=== PATIENT | female | born 1970 | race Caucasian/White ===

== ENCOUNTER 2025-01-28 10:55 | Emergency (ER) | payer OTHER, SELFPAY ==
[2025-01-28] VITALS (33 sets, daily range): BP systolic 134–161; BP diastolic 73–95; PULSE 65–87; RESP 11–22; TEMP 36.8; O2SAT 83–100
--- NOTE | 2025-01-28 10:45 | RT.EKG_ITS ---
APPROVED REPORT Exam: Resting ECG Reason for Exam: dizziness Patient Location: E HR:71 bpm ECG Measurements Heart Rate 71 AXIS OR 179 P 72 QRSd 107 QRS -15 QT 406 T 43 QTc 441 Conclusion Sinus rhythm...normal P axis, V-rate 60- 99 Sinus Rhythm. No prior. WD
--- NOTE | 2025-01-28 11:44 | W.ED.GENAD ---
Discharge Plan Disposition Patient Disposition: Home Condition: Improving Discharge Details Clinical Impression: Nausea, Headache Primary Care Provider: None,None ED Provider: Mikaela Machado Home Meds and New Rx's Prescriptions: No Action estradiol 0.25 mg/0.25 gram (0.1 %) gel in packet 1 packet transdermal .Q7 days bupropion HCl [Wellbutrin SR] 150 mg tablet sustained-release 12 hr 150 mg PO DAILY Discharge Instructions Instructions: Headache, Adult ED, Nausea and Vomiting, Adult ED Additional Instructions: Push fluids and advance diet as tolerated. Follow up with your doctor. Symptoms may worsen and the testing in the emergency department does not rule out the early stages of a possible surgical condition. Return to ED for worsening pain, migration of pain to right lower abdomen, high fevers, or intractable vomiting. Discharge Data Discharge Physician: Mikaela Machado [facility] General Date/Time Provider Initiated Documentation: 01/28/25 10:58. HPI Narrative: 54-year-old female with history of gastroparesis, diverticulosis, Abhishek fundoplication presents for evaluation of nausea, abdominal pain, headache. Patient states that symptoms started on Wednesday. She has had ongoing nausea since that time. She was able to eat a very small amount yesterday. She states that she was going to the bathroom frequently but was not having any diarrhea. No increased urinary frequency, dysuria, gross hematuria. She initially had a frontal headache. Now she has pressure everywhere. She denies any cough or cold. No shortness of breath. She states that her symptoms are very similar to when she had COVID. Denies any known sick contacts. She did take some Zofran at home without any significant improvement of her nausea. She has had a cholecystectomy and had unilateral oophorectomy. Last colonoscopy showed diverticulosis. She has never had diverticulitis. Related Data Home Medications ?Medication ?Instructions ?Recorded ?Confirmed bupropion HCl 150 mg tablet,12 hr 150 mg PO DAILY 01/28/25 01/28/25 sustained-release (Wellbutrin SR) estradiol 0.25 mg/0.25 gram (0.1 1 packet transdermal .Q7 days 01/28/25 01/28/25 %) transdermal gel packet Allergies Allergy/AdvReac Type Severity Reaction Status Date / Time Sulfa (Sulfonamide Allergy Severe Hives Verified 01/28/25 11:13 Antibiotics) General Stated Complaint: Abd Prob SISI: 3 Review of Systems Narrative: Remainder of review of systems otherwise negative except for as noted in the HPI x 10. Exam Narrative Exam Narrative: General: non-toxic, no respiratory distress, comfortable HEENT: normocephalic, atraumatic, lids and lashes normal, PERRL, EOMI, anicteric sclera, no conjunctival injection, moist oral mucosa Neck: No meningeal signs Card: regular rate and rhythm, S1S2, no murmurs, rubs, or gallops Lungs: good air entry, clear to auscultation bilaterally. no wheezes, rales, rhonchi, or retractions Abd: soft, non-tender, non-distended, normal bowel sounds, no rebound or guarding, no peritoneal signs Musculoskeletal: full range of motion of arms and legs, no tenderness to palpation. no clubbing, cyanosis, or edema Neurologic: GSC 15, CN 2-12 intact bilaterally, speech normal, strength normal, sensation intact distally in all four extremities, gait normal, 2+ biceps tendon reflexes, normal finger to nose, normal rapid alternating movements, no pronator drift l Psych: alert and oriented Skin: no petechiae, no lesions, warm and dry Course Vital Signs Vital signs: Vital Signs Temperature 36.8 C 01/28/25 10:59 Pulse 73 01/28/25 10:59 Respiratory Rate 13 01/28/25 10:59 Blood Pressure 156/95 H 01/28/25 10:59 Pulse Oximetry 97 01/28/25 10:59 Temperature 36.8 C 01/28/25 11:13 Temperature Source Oral 01/28/25 11:13 Pulse 68 01/28/25 11:13 Respiratory Rate 13 01/28/25 11:13 Blood Pressure 156/95 H 01/28/25 11:13 Blood Pressure Position Sitting 01/28/25 11:13 Pulse Oximetry 97 01/28/25 11:13 Oxygen Delivery Method Room Air 01/28/25 11:13 Oxygen Flow Rate 0 01/28/25 10:59 Pain Level 8 01/28/25 10:59 Medical Decision Making 54-year-old female with history of gastroparesis, Abhishek fundoplication and diverticulosis presents for evaluation of abdominal discomfort, nausea, headache. At time of evaluation she is neurologically intact. Initial score equals 0. EKG is unremarkable. Laboratory studies unremarkable. 2 troponins normal. Headache resolved with droperidol. Nausea resolved. She is able to tolerate p.o. CT abdomen pelvis was obtained and unremarkable. Unclear etiology of symptoms. May be viral in nature. Abdominal exam is non-acute and patient is in no distress. Will discharge home. Patient to push fluids and advance diet as tolerated. Patient is to follow up with PMD. Patient understands that symptoms may worsen and the testing in the emergency department does not rule out the early stages of a possible surgical condition. Will return to ED for worsening pain, migration of pain to right lower abdomen, high fevers, or intractable vomiting. PFSH All Active Problems (Updated 01/28/25 @ 14:37 by Mikaela Machado MD) Headache (Acute) Nausea (Acute) Social History Smoking/Tobacco Use Status: Never Smoking risk assessment performed?: Yes Alcohol Intake: current Alcohol Intake frequency: 0-2 drinks per day Alcohol type: wine Drug use: Never Substance use type: does not use Housing: house Do you feel safe in your relationship?: Yes PAWSS Have you Been Recently Intoxicated or Drunk Within the Last 30 days?: No Have you Ever Experienced Previous Episodes of Alcohol Withdrawal?: No Have you ever Experienced Withdrawal Seizures?: No Have you ever Experienced Delirium Tremens(DT)s?: No Have you ever undergone Alcohol Rehabilitation Treatment (i.e, inpt ot outpatient treatment programs)?: No Have you ever Experienced Blackouts?: No Have you ever Combined Alcohol with other Downers within the last 90 days?: No Have you ever Combined Alcohol with any other Substance of Abuse during the last 90 days?: No Positive Blood Alcohol level on Presentation? [PCS.BAL]: No Evidence of Increased Autonomic Activity (i.e. HR>120, tremor, sweating, agitation, nausea)?: No Result: 0
[2025-01-28 11:48] LABS: COVID-19 PCR Negative (Negative); RSV PCR Negative (Negative)
[2025-01-28] MEDS: Normal Saline 1,000 ML 1000 ML IV (11:50)
[2025-01-28] MEDS: Droperidol 5 MG/2 ML VIAL 1.25 MG IVP (11:53)
[2025-01-28 11:54] LABS: Abs Immature Grans 0.02 10^3/uL (0.0-0.06); HCT 42.5 % (36.0-46.0); HGB 14.6 g/dL (11.2-15.7); Immature Grans % 0.3 %; MCH 31.2 pg (27.0-33.0); MCHC 34.4 % (32.0-36.0); MCV 91 fL (80-95); MPV 10.0 fL (8.0-11.0); Platelet Count 200 10^3/uL (130-400); RBC 4.68 10^6/uL (3.93-5.22); RDW 11.8 % (11.7-14.6); RDW-SD 39.3 fL; WBC 6.22 10^3/uL (4.4-10.8)
[2025-01-28 12:05] LABS: Lipase 34 U/L (<78)
[2025-01-28 12:14] LABS: ALT 25 U/L (14-59); AST 18 U/L (15-37); Albumin 4.1 g/dL (3.4-5.0); Alkaline Phosphatase 70 U/L (46-116); Anion Gap 10.1 mmol/L (3-11); BUN 8 mg/dL (7-18); Bilirubin, Total 0.5 mg/dL (0.2-1.0); CO2 28.9 mmol/L (21.0-32.0); Calcium 9.5 mg/dL (8.5-10.1); Chloride 96 mmol/L (98-107); Estimated GFR 86.42 (mL/min/1.73m2); Glucose 92 mg/dL (74-106); Potassium 3.5 mmol/L (3.5-5.1); Sodium 135 mmol/L (136-145); Total Protein 7.7 g/dL (6.4-8.2); Troponin I 6 ng/L (<or=51)
--- NOTE | 2025-01-28 12:45 | DI.CT_ITS ---
Exam(s) CT ABDOMEN PELVIS W EXAM: CT ABDOMEN PELVIS W x CLINICAL HISTORY: nausea, abd pain. TECHNIQUE: Imaging Protocol: Axial computed tomography images with coronal and sagittal reformatted images were created and reviewed CONTRAST MATERIAL: Intravenous: Omnipaque-350 75cc Oral: None COMPARISON: No exams were available for comparison FINDINGS: VISUALIZED LUNG BASES: There are mild increased markings in the basal segments of both lower lobes. No large infiltrates nor pleural effusions.. ABDOMEN: GI:. There is evidence of previous surgery at the GE junction, probably fundoplication. There is no hiatus hernia evident. LIVER: There is a benign cyst in the caudate lobe of the liver which measures 1.5 x 1.0 cm. No other focal hepatic findings . There is minimal dilatation of intrahepatic ducts in this patient has had prior cholecystectomy. The CBD is upper normal diameter. GALLBLADDER/BILIARY: The gallbladder is surgically absent. CBD is not dilated. PANCREAS: No evidence of pancreatic mass nor dilatation of the pancreatic duct. SPLEEN: Spleen is not enlarged. No obvious intrasplenic lesions. Splenic and portal veins are patent. ADRENALS: There are no significant adrenal masses. KIDNEYS:No cysts evident. No solid renal masses. No calculi nor hydronephrosis.. ABDOMINAL AORTA: Abdominal aorta is not enlarged. LYMPH NODES:There is no retroperitoneal nor paraaortic adenopathy. ABDOMINAL WALL: No evidence of significant anterior abdominal wall nor inguinal hernia. GI: There is no evidence of bowel obstruction, free air, nor abscess. However, there is a small amount of for free fluid in the posterior pelvis cul-de-sac right of center. PELVIS: GI: The appendix is difficult to identify as a distinct structure. There is no obvious swollen appendix.No evidence of sigmoid diverticulitis. LYMPH NODES: There is no intrapelvic nor inguinal adenopathy. REPRODUCTIVE: Uterus is retroverted. Normal size. There are no abnormal adnexal masses. However, there is small amount of free fluid in the dependent aspect of the pelvis-presacral region. There are no ovarian masses identified. URINARY BLADDER: No significant findings. OSSEOUS: No fractures. No significant osseous lesions. IMPRESSION: 1. Findings at the GE junction the stomach probably reflect prior fundoplication surgery. There is no hiatal hernia at this time. 2. No evidence of bowel obstruction, free air, nor abscess. 3. However, there is a small amount of ascites in the dependent aspect of the pelvis. There are no adnexal masses in the pelvis. Uterus size is normal 4. The appendix is not seen is a separate structure. There is no obvious swollen appendix evident. There is evidence of previous cholecystectomy. Findings called by myself to ER physician on 01/28/2025 at 2:30 p.m. RADIATION DOSE DELIVERED: 372.39mGy.cm Total DLP DATA REPOSITORY: All CT scans at this facility are submitted to the National Radiology Data Registry (NRDR) Dose Index Registry (DIR) with the [employer] (ACR). RADIATION OPTIMIZATION: All CT scans at this facility use at least one of these dose optimization techniques: automated exposure control; mA and/or kV adjustment per patient size (includes targeted exams where dose is matched to clinical indication); or iterative reconstruction.
[2025-01-28] MEDS: Normal Saline - Diluent 50 ML VIAL IJ (13:36)
[2025-01-28] MEDS: Omnipaque 350 MG/ML 100 ML BTL IJ (13:38)
[2025-01-28 13:45] LABS: Troponin I 6 ng/L (<or=51)
[2025-01-28] MEDS: Ondansetron 4 MG/2 ML VIAL IVP (13:52)
--- NOTE | 2025-01-28 14:32 | DI.VRAD_ITS ---
PROCEDURE INFORMATION: Exam: CT Abdomen And Pelvis With Contrast Exam date and time: 01/28/2025 1:41 PM Age: 54 years old Clinical indication: Pain; Other: Nausea TECHNIQUE: Imaging protocol: Computed tomography of the abdomen and pelvis with contrast. Contrast material: OMNIPAQUE 350; Contrast volume: 75 ml; Contrast route: INTRAVENOUS (IV); COMPARISON: No relevant prior studies available. FINDINGS: Liver: There is a right liver cyst. Gallbladder and biliary ducts: The gallbladder is surgically absent. No intra or extrahepatic biliary ductal dilatation. Pancreas: Normal. No ductal dilation. Spleen: Normal. No splenomegaly. Adrenal glands: Normal. No mass. Kidneys and ureters: Normal. No hydronephrosis. Stomach and bowel: The patient has undergone a subtotal gastrectomy. Appendix: No evidence of appendicitis. Intraperitoneal space: There is a small volume of free fluid in the dependent pelvis. No free air. Vasculature: Unremarkable. No abdominal aortic aneurysm. Lymph nodes: Unremarkable. No enlarged lymph nodes. Urinary bladder: Unremarkable as visualized. Reproductive: Unremarkable as visualized. Bones/joints: Unremarkable. No acute fracture. Soft tissues: Unremarkable. IMPRESSION: No acute findings. Dictated and Authenticated by: Ilan Saleh MD. Orderin Carter Al MD
== END 2025-01-28 14:52 | disposition home or self-care (01) ==
PROVIDERS: Emergency Provider Emergency Medicine Emergency Medical Services
DX: R51.9 Headache, unspecified (principal); R11.0 Nausea
CPT/HCPCS: 12001; 80053; 83690; 87637; 93005; 96374; 96375; 99283; 99285; 74177; 84484; 85025; 93010; 99284; J1790; J2405; J3490